=== PATIENT | female | born 2000 | race Caucasian/White ===

== ENCOUNTER 2020-06-13 12:47 | Emergency (ER) | payer OTHER ==
[2020-06-13 13:28] VITALS: BP 106/65; PULSE 77; TEMP 98.6; BMI 27.6
[2020-06-13] MEDS ORDERED: ACETAMINOPHEN 500 MG TABLET (FP) PO ONE (14:35)
[2020-06-13] MEDS ORDERED: ACETAMINOPHEN 325 MG TABLET (FP) ONE (14:39)
[2020-06-13 15:29] LABS: HCG,QUALITATIVE URINE Negative
[2020-06-13 15:33] LABS: EPI CELLS >36 /uL (0-25.1); HYALINE CASTS 8 /uL (0-3.1); URINE APPEARANCE CLOUDY; URINE BACTERIA 3263 /uL (0-1359); URINE BILIRUBIN NEGATIVE (NEGATIVE); URINE COLOR RED; URINE GLUCOSE (UA) NEGATIVE (NEGATIVE); URINE KETONE NEGATIVE (NEGATIVE); URINE LEUK ESTERASE TRACE (NEGATIVE); URINE NITRITE NEGATIVE (NEGATIVE); URINE PROTEIN 2+ (NEGATIVE); URINE RBC 440 /uL (0-23.9); URINE UROBILINOGEN 0.2 mg/dL (0.2-1.0); URINE WBC 128 /uL (0-25.8)
== END 2020-06-13 15:00 | disposition home or self-care (01) ==
LOC: JERFT 12:47
DX: R30.0 Dysuria (principal); R51.9 Headache, unspecified
CPT/HCPCS: 81003; 84703; 87086; 87804; 99283-25; C9803; U0003